=== PATIENT | female | born 1990 | race Caucasian/White ===

== ENCOUNTER 2018-07-05 00:15 | Emergency (ER) | payer OTHER ==
[~2018-07-05] VITALS: Ht 162.6 cm; Wt 78.2 kg
[~2018-07-05 00:15] MED LIST: IBUP-2070 PO
[2018-07-05 00:24] VITALS: BP 120/86
== END 2018-07-05 02:55 | disposition left against medical advice (07) ==
LOC: EMS 00:15
DX: R51 Headache (principal); M54.5 Low back pain; Z53.21 Procedure and treatment not carried out due to patient leaving prior to being seen by health care provider

== ENCOUNTER 2024-12-19 11:52 | Emergency (ER) | payer OTHER ==
[~2024-12-19] VITALS: Ht 160 cm; Wt 91.6 kg
[2024-12-19 12:05] VITALS: BP 145/90; PULSE 106; RESP 16; TEMP 98.3; O2SAT 96
== END 2024-12-19 12:33 ==
LOC: EMS 12:00
DX: M54.2 Cervicalgia (principal); Y04.0XXA Assault by unarmed brawl or fight, initial encounter; Y93.89 Activity, other specified; Y92.89 Other specified places as the place of occurrence of the external cause; Y99.8 Other external cause status
CPT/HCPCS: 99283; Z7502